=== PATIENT | male | born 1955 | race African-American/Black ===

== ENCOUNTER 2022-01-24 10:41 | Inpatient (IN) ==
[2022-01-24] MEDS ORDERED: Lidocaine -MPF 2% 5 ML VIAL ONE (11:04)
[2022-01-24] MEDS ORDERED: *HR* Succinylcholine 200 MG/10 ML VIAL IVP ONE (11:04)
[2022-01-24] MEDS ORDERED: *HR* Rocuronium Bromide 50 MG/5 ML VIAL ONE ×2 (11:04→13:37)
[2022-01-24] MEDS ORDERED: Ondansetron 4 MG/2 ML VIAL ONE (11:04)
[2022-01-24] MEDS ORDERED: *HR* FentaNYL (PF) 100 MCG/2 ML VIAL ONE ×2 (11:05→13:43)
[2022-01-24] MEDS ORDERED: *HR* Propofol 200 MG/20 ML VIAL IVP ONE (11:05)
[2022-01-24] MEDS ORDERED: CeFAZolin Syr 2,000MG/20 ML 2,000 MG/20 ML SYRINGE IVPB ONE (11:16)
[2022-01-24] MEDS ORDERED: Ringers Solution, Lactated 1,000 ML IVC SCH (11:30)
[2022-01-24] MEDS ORDERED: ceFAZolin 1,000 MG, Sodium Chloride IRRigation 1,000 ML IR ONE (12:20)
[2022-01-24] MEDS ORDERED: Iopamidol - 300 100 ML INFUS..BTL ONE (12:21)
[2022-01-24] MEDS ORDERED: Heparin 1,000 UNITS/500 mL 1,500 ML ONE (12:21)
[2022-01-24] MEDS ORDERED: Heparin 1,000 UNITS/500 mL 500 ML ONE (12:22)
[2022-01-24] MEDS ORDERED: Ondansetron 4 MG/2 ML VIAL IVP PRN ×2 (12:53→19:33)
[2022-01-24] MEDS ORDERED: *HR* HYDROmorphone PF 0.5 MG/0.5 ML SYRINGE IVP PRN (12:53)
[2022-01-24] MEDS ORDERED: *HR* OxyCODONE Immed Rel 5 MG TABLET PO PRN ×2 (12:53→19:33)
[2022-01-24] MEDS ORDERED: EPHEDrine 50 MG/ML VIAL ONE (13:22)
[2022-01-24] MEDS ORDERED: *HR* Heparin 5,000 UNIT/ML VIAL ONE (13:54)
[2022-01-24] MEDS ORDERED: *HR* HYDROMORPHONE 2 MG/ML VIAL ONE (14:59)
[2022-01-24] MEDS ORDERED: Sugammadex Sodium 200 MG/2 ML VIAL IV ONE (15:42)
[2022-01-24] MEDS ORDERED: *HR* Labetalol 20 MG/4 ML SYRINGE IVP PRN (19:33)
[2022-01-24] MEDS ORDERED: Fluticasone Propionate Nasal 50 MCG/SPRAY BOTTLE NS PRN (19:33)
[2022-01-24] MEDS ORDERED: Acetaminophen 325 MG TABLET PO PRN (19:33)
[2022-01-24] MEDS ORDERED: Naloxone 0.4 MG/ML INJ IVP PRN (19:33)
[2022-01-24] MEDS ORDERED: *HR* HYDROcodone/Acet 5/325 mg TABLET PO PRN (19:33)
[2022-01-24] MEDS: cilostazoL 100 MG TABLET PO SCH (21:10)
[2022-01-24] MEDS: CeFAZolin 2,000 MG/120 ML BAG IVPB SCH (21:11)
[2022-01-25 03:41] LABS: Hematocrit 31.7 % (37.5-50.1); Hemoglobin 10.5 g/dL (12.9-16.9); Mean Corpuscular HGB Conc 33.1 g/dL (31.6-35.5); Mean Corpuscular Hemoglobin 29.9 pg (28.0-33.3); Mean Corpuscular Volume 90.3 fL (83.0-100.0); Platelet Count 217 K/mcL (140-400); Red Blood Count 3.51 M/mcL (4.19-5.50); Red Cell Distribution Width 14.3 % (11.5-14.5); White Blood Count 13.4 K/mcL (4.3-11.1)
[2022-01-25 04:03] LABS: BUN/Creatinine Ratio 18 (6-26); Blood Urea Nitrogen 13 mg/dL (8-23); Calcium 8.5 mg/dL (8.6-10.3); Carbon Dioxide 25 mEq/L (23-29); Chloride 105 mEq/L (98-107); Glucose 136 mg/dL (70-105); Osmolality,Calculated 286 (280-300); Potassium 3.7 mEq/L (3.5-5.1); Sodium 137 mEq/L (136-145)
[2022-01-25] MEDS: CeFAZolin 2,000 MG/120 ML BAG IVPB SCH ×2 (05:31→12:09)
[2022-01-25 07:12] VITALS: O2SAT 98
[2022-01-25] MEDS: cilostazoL 100 MG TABLET PO SCH (08:13)
[2022-01-25] MEDS ORDERED: Multivit/Ca/Min/Fe/FA 1 TAB TABLET PO SCH (09:00)
[2022-01-25] MEDS ORDERED: Aspirin Enteric Coated 81 MG Tablet PO SCH (09:00)
[2022-01-25 11:10] VITALS: BP 105/36; PULSE 67; TEMP 98.3
== END 2022-01-25 14:33 | disposition home or self-care (01) | DRG 269 ==
LOC: SAMDAY 10:41 → 2NNU 17:51
PROVIDERS: ADMIT Surgery Vascular Surgery; ATTEND Surgery Vascular Surgery